=== PATIENT | female | born 1975 | race Caucasian/White ===

== ENCOUNTER 2016-03-14 11:11 | Outpatient (RCR) | payer OTHER ==
[~2016-03-14] VITALS: Ht 167.6 cm; Wt 89.0 kg
[2016-03-14] MEDS ORDERED: Glycopyrrolate 0.2mg/ml 1ml Vial ONE (11:12)
[2016-03-14] MEDS ORDERED: Succinylcholine 20mg/ml 10ml vial ONE (11:12)
[2016-03-14] MEDS ORDERED: Midazolam 2mg/2ml Inj ONE (11:12)
[2016-03-14] MEDS ORDERED: Methohexital Sodium Syr 100mg/10ml IVP ONE (11:12)
[2016-03-14] MEDS ORDERED: NS 550ML IV ONE (11:12)
[2016-03-26] MEDS ORDERED: NS 550ML IV ONE (12:00)
[2016-03-26] MEDS ORDERED: Methohexital Sodium Syr 100mg/10ml IVP ONE (12:00)
[2016-03-26] MEDS ORDERED: Midazolam 2mg/2ml Inj ONE (12:00)
[2016-03-26] MEDS ORDERED: Succinylcholine 20mg/ml 10ml vial ONE (12:00)
[2016-03-26] MEDS ORDERED: Glycopyrrolate 0.2mg/ml 1ml Vial ONE (12:00)
== END 2016-04-10 | disposition home or self-care (01) ==
LOC: ECT 11:11
DX: F31.63 Bipolar disorder, current episode mixed, severe, without psychotic features (principal); F41.0 Panic disorder [episodic paroxysmal anxiety]; F43.10 Post-traumatic stress disorder, unspecified; M54.5 Low back pain; R73.03 Prediabetes; M79.7 Fibromyalgia
CPT/HCPCS: 90870; J0330; J2250; J2405; J7040

== ENCOUNTER 2016-04-11 05:19 | Outpatient (RCR) | payer OTHER ==
[~2016-04-11] VITALS: Ht 167.6 cm; Wt 89.0 kg
[2016-04-11] MEDS ORDERED: NS 550ML IV ONE (05:20)
[2016-04-11] MEDS ORDERED: Midazolam 2mg/2ml Inj ONE (05:20)
[2016-04-11] MEDS ORDERED: Succinylcholine 20mg/ml 10ml vial ONE (05:20)
[2016-04-11] MEDS ORDERED: Glycopyrrolate 0.2mg/ml 1ml Vial ONE (05:20)
[2016-04-11] MEDS ORDERED: Methohexital Sodium Syr 100mg/10ml IVP ONE (05:20)
[2016-04-11] MEDS ORDERED: Atropine Sulfate 0.4mg/ml inj IVP PRN (09:23)
== END 2016-05-08 | disposition home or self-care (01) ==
LOC: ECT 05:19
DX: F31.63 Bipolar disorder, current episode mixed, severe, without psychotic features (principal)
CPT/HCPCS: 90870; J0330; J2250; J2405; J7040

== ENCOUNTER 2016-05-11 07:05 | Outpatient (RCR) | payer OTHER ==
[~2016-05-11] VITALS: Ht 167.6 cm; Wt 89.0 kg
[2016-05-28] MEDS ORDERED: Methohexital Sodium Syr 100mg/10ml IVP ONE (07:06)
[2016-05-28] MEDS ORDERED: NS 550ML IV ONE (07:06)
[2016-05-28] MEDS ORDERED: Midazolam 2mg/2ml Inj ONE (07:06)
[2016-05-28] MEDS ORDERED: Glycopyrrolate 0.2mg/ml 1ml Vial ONE (07:06)
[2016-05-28] MEDS ORDERED: Succinylcholine 20mg/ml 10ml vial ONE (07:06)
[2016-05-28] MEDS ORDERED: Atropine Sulfate 0.4mg/ml inj IVP PRN (10:58)
== END 2016-06-08 | disposition home or self-care (01) ==
LOC: ECT 07:05
DX: F31.63 Bipolar disorder, current episode mixed, severe, without psychotic features (principal)
CPT/HCPCS: 90870; J0330; J2250; J2405; J7040

== ENCOUNTER 2016-06-25 05:53 | Outpatient (RCR) | payer OTHER | END 2016-07-08 | disposition home or self-care (01) | LOC: ECT 05:53 | DX: F31.63 Bipolar disorder, current episode mixed, severe, without psychotic features (principal) ==

== ENCOUNTER 2017-05-03 07:47 | Outpatient (RCR) | payer OTHER ==
[~2017-05-03] VITALS: Ht 167.6 cm; Wt 89.0 kg
[2017-05-03] MEDS ORDERED: Succinylcholine 20mg/ml 10ml vial ONE (07:48)
[2017-05-03] MEDS ORDERED: NS 500ML ONE (07:48)
[2017-05-03] MEDS ORDERED: Midazolam 2mg/2ml Inj ONE (07:48)
[2017-05-03] MEDS ORDERED: Glycopyrrolate 0.2mg/ml 1ml Vial ONE (07:48)
[2017-05-03] MEDS ORDERED: Methohexital Sodium Syr 100mg/10ml IVP ONE (07:48)
[2017-05-03 08:26] VITALS: BP 110/76
[2017-05-03 08:40] VITALS: BP 136/67
[2017-05-03 08:45] VITALS: BP 127/81
[2017-05-03 08:50] VITALS: BP 113/68
[2017-05-03 08:55] VITALS: BP 131/57
[2017-05-06] MEDS ORDERED: Methohexital Sodium Syr 100mg/10ml IVP ONE (08:00)
[2017-05-06] MEDS ORDERED: Succinylcholine 20mg/ml 10ml vial ONE (08:00)
[2017-05-06] MEDS ORDERED: Glycopyrrolate 0.2mg/ml 1ml Vial ONE (08:00)
[2017-05-06] MEDS ORDERED: NS 500ML ONE (08:00)
[2017-05-06] MEDS ORDERED: Midazolam 2mg/2ml Inj ONE (08:00)
[2017-05-06 10:07] VITALS: BP 111/79
[2017-05-06] MEDS ORDERED: Atropine Sulfate 0.4mg/ml inj IVP PRN (10:28)
[2017-05-06] MEDS ORDERED: Sodium Chloride 500ML 500 ML IV ONE (10:28)
[2017-05-06 10:30] VITALS: BP 139/79
[2017-05-06 10:35] VITALS: BP 114/61
[2017-05-06 10:40] VITALS: BP 114/61
[2017-05-06 10:45] VITALS: BP 110/52
[2017-05-08 07:11] VITALS: BP 112/80
[2017-05-08] MEDS ORDERED: Sodium Chloride 500ML 500 ML IV ONE (07:24)
[2017-05-08 07:25] VITALS: BP 131/74
[2017-05-08 07:30] VITALS: BP 126/68
[2017-05-08 07:35] VITALS: BP 91/60
[2017-05-08 07:40] VITALS: BP 106/40
[2017-05-08 07:45] VITALS: BP 108/69
[2017-05-08] MEDS ORDERED: Midazolam 2mg/2ml Inj ONE (08:00)
[2017-05-08] MEDS ORDERED: Succinylcholine 20mg/ml 10ml vial ONE (08:00)
[2017-05-08] MEDS ORDERED: Methohexital Sodium Syr 100mg/10ml IVP ONE (08:00)
[2017-05-08] MEDS ORDERED: NS 500ML ONE (08:00)
[2017-05-08] MEDS ORDERED: Glycopyrrolate 0.2mg/ml 1ml Vial ONE (08:00)
== END 2017-05-08 | disposition home or self-care (01) ==
LOC: ECT 07:47
DX: F31.63 Bipolar disorder, current episode mixed, severe, without psychotic features (principal)
CPT/HCPCS: 90870; J0330; J2250; J2405; J7040

== ENCOUNTER 2017-05-10 05:08 | Outpatient (RCR) | payer OTHER ==
[~2017-05-10] VITALS: Ht 167.6 cm; Wt 89.0 kg
[2017-05-10] MEDS ORDERED: Methohexital Sodium Syr 100mg/10ml IVP ONE (05:09)
[2017-05-10] MEDS ORDERED: Succinylcholine 20mg/ml 10ml vial ONE (05:09)
[2017-05-10] MEDS ORDERED: Midazolam 2mg/2ml Inj ONE (05:09)
[2017-05-10] MEDS ORDERED: NS 500ML ONE (05:09)
[2017-05-10] MEDS ORDERED: Glycopyrrolate 0.2mg/ml 1ml Vial ONE (05:09)
[2017-05-10 08:06] VITALS: BP 113/76
[2017-05-10] MEDS ORDERED: Atropine Sulfate 0.4mg/ml inj IVP PRN (08:28)
[2017-05-10] MEDS ORDERED: Sodium Chloride 500ML 500 ML IV ONE (08:28)
[2017-05-10 08:30] VITALS: BP 109/32
[2017-05-10 08:35] VITALS: BP 123/42
[2017-05-10 08:40] VITALS: BP 102/63
[2017-05-10 08:45] VITALS: BP 106/66
[2017-05-10 08:50] VITALS: BP 108/64
[2017-05-13] MEDS ORDERED: Succinylcholine 20mg/ml 10ml vial ONE (07:00)
[2017-05-13] MEDS ORDERED: NS 500ML ONE (07:00)
[2017-05-13] MEDS ORDERED: Midazolam 2mg/2ml Inj ONE (07:00)
[2017-05-13] MEDS ORDERED: Glycopyrrolate 0.2mg/ml 1ml Vial ONE (07:00)
[2017-05-13] MEDS ORDERED: Methohexital Sodium Syr 100mg/10ml IVP ONE (07:00)
[2017-05-13 08:31] VITALS: BP 120/80
[2017-05-13 08:43] VITALS: BP 135/87
[2017-05-13] MEDS ORDERED: Sodium Chloride 500ML 500 ML IV ONE (08:43)
[2017-05-13 08:48] VITALS: BP 130/76
[2017-05-13 08:53] VITALS: BP 127/93
[2017-05-13 08:58] VITALS: BP 119/77
[2017-05-17] MEDS ORDERED: Midazolam 2mg/2ml Inj ONE (07:00)
[2017-05-17] MEDS ORDERED: Methohexital Sodium Syr 100mg/10ml IVP ONE (07:00)
[2017-05-17] MEDS ORDERED: Glycopyrrolate 0.2mg/ml 1ml Vial ONE (07:00)
[2017-05-17] MEDS ORDERED: Succinylcholine 20mg/ml 10ml vial ONE (07:00)
[2017-05-17] MEDS ORDERED: NS 500ML ONE (07:00)
[2017-05-17 08:10] VITALS: BP 131/69
[2017-05-17] MEDS ORDERED: Sodium Chloride 500ML 500 ML IV ONE (08:10)
[2017-05-17 08:15] VITALS: BP 121/73
[2017-05-17 08:20] VITALS: BP 125/69
[2017-05-17 08:25] VITALS: BP 121/74
[2017-05-20] MEDS ORDERED: NS 500ML ONE (08:00)
[2017-05-20] MEDS ORDERED: Succinylcholine 20mg/ml 10ml vial ONE (08:00)
[2017-05-20] MEDS ORDERED: Midazolam 2mg/2ml Inj ONE (08:00)
[2017-05-20] MEDS ORDERED: Glycopyrrolate 0.2mg/ml 1ml Vial ONE (08:00)
[2017-05-20] MEDS ORDERED: Methohexital Sodium Syr 100mg/10ml IVP ONE (08:00)
[2017-05-20 09:22] VITALS: BP 125/83
[2017-05-20] MEDS ORDERED: Sodium Chloride 500ML 500 ML IV ONE (09:53)
[2017-05-20] MEDS ORDERED: Atropine Sulfate 0.4mg/ml inj IVP PRN (09:53)
[2017-05-20 09:55] VITALS: BP 126/73
[2017-05-20 10:00] VITALS: BP 129/63
[2017-05-20 10:05] VITALS: BP 123/68
[2017-05-20 10:10] VITALS: BP 106/56
[2017-05-22] MEDS ORDERED: Midazolam 2mg/2ml Inj ONE (08:00)
[2017-05-22] MEDS ORDERED: Glycopyrrolate 0.2mg/ml 1ml Vial ONE (08:00)
[2017-05-22] MEDS ORDERED: Methohexital Sodium Syr 100mg/10ml IVP ONE (08:00)
[2017-05-22] MEDS ORDERED: Succinylcholine 20mg/ml 10ml vial ONE (08:00)
[2017-05-22] MEDS ORDERED: NS 500ML ONE (08:00)
[2017-05-22] MEDS ORDERED: Sodium Chloride 500ML 500 ML IV ONE (10:01)
[2017-05-24] MEDS ORDERED: Midazolam 2mg/2ml Inj ONE (07:00)
[2017-05-24] MEDS ORDERED: Succinylcholine 20mg/ml 10ml vial ONE (07:00)
[2017-05-24] MEDS ORDERED: Glycopyrrolate 0.2mg/ml 1ml Vial ONE (07:00)
[2017-05-24] MEDS ORDERED: NS 500ML ONE (07:00)
[2017-05-24] MEDS ORDERED: Methohexital Sodium Syr 100mg/10ml IVP ONE (07:00)
[2017-05-24 08:15] VITALS: BP 135/95
[2017-05-24 08:35] VITALS: BP 121/86
[2017-05-24 08:40] VITALS: BP 136/92
[2017-05-24 08:45] VITALS: BP 144/89
[2017-05-24 08:50] VITALS: BP 149/110
[2017-05-27] MEDS ORDERED: Glycopyrrolate 0.2mg/ml 1ml Vial ONE (06:00)
[2017-05-27] MEDS ORDERED: Succinylcholine 20mg/ml 10ml vial ONE (06:00)
[2017-05-27] MEDS ORDERED: Midazolam 2mg/2ml Inj ONE (06:00)
[2017-05-27] MEDS ORDERED: Methohexital Sodium Syr 100mg/10ml IVP ONE (06:00)
[2017-05-27] MEDS ORDERED: NS 500ML ONE (06:00)
[2017-05-27 08:06] VITALS: BP 124/90
[2017-05-27] MEDS ORDERED: Sodium Chloride 500ML 500 ML IV ONE (08:19)
[2017-05-27 08:20] VITALS: BP 118/64
[2017-05-27 08:25] VITALS: BP 119/67
[2017-05-27 08:30] VITALS: BP 117/58
[2017-05-27 08:35] VITALS: BP 109/68
[2017-05-31 08:00] VITALS: BP 140/89
[2017-05-31] MEDS ORDERED: Succinylcholine 20mg/ml 10ml vial ONE (08:00)
[2017-05-31] MEDS ORDERED: Midazolam 2mg/2ml Inj ONE (08:00)
[2017-05-31] MEDS ORDERED: Methohexital Sodium Syr 100mg/10ml IVP ONE (08:00)
[2017-05-31] MEDS ORDERED: NS 500ML ONE (08:00)
[2017-05-31] MEDS ORDERED: Glycopyrrolate 0.2mg/ml 1ml Vial ONE (08:00)
[2017-05-31] MEDS ORDERED: Sodium Chloride 500ML 500 ML IV ONE (08:16)
[2017-05-31 08:20] VITALS: BP 131/52
[2017-05-31 08:25] VITALS: BP 134/73
[2017-05-31 08:30] VITALS: BP 126/72
[2017-05-31 08:35] VITALS: BP 128/67
== END 2017-06-08 | disposition home or self-care (01) ==
LOC: ECT 05:08
DX: F31.63 Bipolar disorder, current episode mixed, severe, without psychotic features (principal)
CPT/HCPCS: 90870; J0330; J2250; J2405; J7040

== ENCOUNTER 2017-07-22 08:31 | Outpatient (RCR) | payer OTHER ==
[~2017-07-22] VITALS: Ht 167.6 cm; Wt 89.0 kg
[2017-07-22 07:29] VITALS: BP 123/88
[2017-07-22 07:55] VITALS: BP 126/72
[2017-07-22 08:00] VITALS: BP 133/63
[2017-07-22 08:05] VITALS: BP 144/37
[2017-07-22 08:10] VITALS: BP 135/66
[2017-07-22 08:15] VITALS: BP 138/69
[~2017-07-22 08:31] MED LIST: Atropine Sulfate 0.4mg/ml inj IVP PRN; Sodium Chloride 500ML 500 ML IV ONE
[2017-07-22] MEDS ORDERED: NS 500ML ONE (08:32)
[2017-07-22] MEDS ORDERED: Succinylcholine 20mg/ml 10ml vial ONE (08:32)
[2017-07-22] MEDS ORDERED: Midazolam 2mg/2ml Inj ONE (08:32)
[2017-07-22] MEDS ORDERED: Glycopyrrolate 0.2mg/ml 1ml Vial ONE (08:32)
[2017-07-22] MEDS ORDERED: Methohexital Sodium Syr 100mg/10ml IVP ONE (08:32)
[2017-08-07] MEDS ORDERED: Glycopyrrolate 0.2mg/ml 1ml Vial ONE (07:00)
[2017-08-07] MEDS ORDERED: NS 500ML ONE (07:00)
[2017-08-07] MEDS ORDERED: Midazolam 2mg/2ml Inj ONE (07:00)
[2017-08-07] MEDS ORDERED: Succinylcholine 20mg/ml 10ml vial ONE (07:00)
[2017-08-07] MEDS ORDERED: Methohexital Sodium Syr 100mg/10ml IVP ONE (07:00)
[2017-08-07 08:18] VITALS: BP 135/95
[2017-08-07] MEDS ORDERED: Sodium Chloride 500ML 500 ML IV ONE (08:38)
[2017-08-07 08:40] VITALS: BP 131/72
[2017-08-07 08:45] VITALS: BP 131/78
[2017-08-07 08:50] VITALS: BP 134/80
[2017-08-07 08:55] VITALS: BP 138/79
== END 2017-08-08 | disposition home or self-care (01) ==
LOC: ECT 08:31
DX: F31.63 Bipolar disorder, current episode mixed, severe, without psychotic features (principal)
CPT/HCPCS: 90870; J0330; J2250; J2405; J7040

== ENCOUNTER 2017-08-26 04:49 | Outpatient (RCR) | payer OTHER ==
[~2017-08-26] VITALS: Ht 33 cm; Wt 0.5 kg
[2017-08-26] MEDS ORDERED: Succinylcholine 20mg/ml 10ml vial ONE (04:50)
[2017-08-26] MEDS ORDERED: Midazolam 2mg/2ml Inj ONE (04:50)
[2017-08-26] MEDS ORDERED: Glycopyrrolate 0.2mg/ml 1ml Vial ONE (04:50)
[2017-08-26] MEDS ORDERED: Methohexital Sodium Syr 100mg/10ml IVP ONE (04:50)
[2017-08-26] MEDS ORDERED: NS 500ML ONE (04:50)
[2017-08-26 07:51] VITALS: BP 124/88
[2017-08-26] MEDS ORDERED: Sodium Chloride 500ML 500 ML IV ONE (08:09)
[2017-08-26 08:10] VITALS: BP 134/76
[2017-08-26 08:15] VITALS: BP 134/84
[2017-08-26 08:20] VITALS: BP 136/64
[2017-08-26 08:25] VITALS: BP 129/88
[2017-09-06 07:27] VITALS: BP 136/94
[2017-09-06] MEDS ORDERED: Sodium Chloride 500ML 500 ML IV ONE (07:42)
[2017-09-06 07:45] VITALS: BP 153/83
[2017-09-06 07:50] VITALS: BP 137/79
[2017-09-06 07:55] VITALS: BP 128/77
[2017-09-06 08:00] VITALS: BP 121/77
[2017-09-07] MEDS ORDERED: Methohexital Sodium 500mg Vial IVP ONE (10:42)
[2017-09-07] MEDS ORDERED: NS 500ML ONE (10:42)
[2017-09-07] MEDS ORDERED: Glycopyrrolate 0.2mg/ml 1ml Vial ONE (10:42)
[2017-09-07] MEDS ORDERED: Midazolam 2mg/2ml Inj ONE (10:42)
[2017-09-07] MEDS ORDERED: Succinylcholine 20mg/ml 10ml vial ONE (10:42)
== END 2017-09-07 | disposition home or self-care (01) ==
LOC: ECT 04:49
DX: F31.63 Bipolar disorder, current episode mixed, severe, without psychotic features (principal)
CPT/HCPCS: 90870; J0330; J2250; J2405; J3490; J7040

== ENCOUNTER 2017-09-16 05:36 | Outpatient (RCR) | payer OTHER ==
[~2017-09-16] VITALS: Ht 167.6 cm; Wt 89.0 kg
[2017-09-16] MEDS ORDERED: Glycopyrrolate 0.2mg/ml 1ml Vial ONE (05:37)
[2017-09-16] MEDS ORDERED: Succinylcholine 20mg/ml 10ml vial ONE (05:37)
[2017-09-16] MEDS ORDERED: Midazolam 2mg/2ml Inj ONE (05:37)
[2017-09-16] MEDS ORDERED: NS 500ML ONE (05:37)
[2017-09-16] MEDS ORDERED: Methohexital Sodium Syr 100mg/10ml IVP ONE (05:37)
[2017-09-16] MEDS ORDERED: Sodium Chloride 500ML 500 ML IV ONE (08:19)
[2017-09-16 08:20] VITALS: BP 128/72
[2017-09-16 08:25] VITALS: BP 128/74
[2017-09-16 08:30] VITALS: BP 128/74
[2017-09-16 08:35] VITALS: BP 119/55
[2017-09-16 08:40] VITALS: BP 106/57
[2017-09-16 08:45] VITALS: BP 106/57
== END 2017-10-08 | disposition home or self-care (01) ==
LOC: ECT 05:36
DX: F31.63 Bipolar disorder, current episode mixed, severe, without psychotic features (principal)
CPT/HCPCS: 90870; J0330; J2250; J2405; J7040

== ENCOUNTER 2017-10-09 08:29 | Outpatient (RCR) | payer OTHER ==
[~2017-10-09] VITALS: Ht 167.6 cm; Wt 89.0 kg
[2017-10-09] MEDS ORDERED: Midazolam 2mg/2ml Inj ONE (08:30)
[2017-10-09] MEDS ORDERED: Glycopyrrolate 0.2mg/ml 1ml Vial ONE (08:30)
[2017-10-09] MEDS ORDERED: NS 500ML ONE (08:30)
[2017-10-09] MEDS ORDERED: Succinylcholine 20mg/ml 10ml vial ONE (08:30)
[2017-10-09] MEDS ORDERED: Methohexital Sodium Syr 100mg/10ml IVP ONE (08:30)
[2017-10-09 09:13] VITALS: BP 118/81
[2017-10-09 09:30] VITALS: BP 122/68
[2017-10-09] MEDS ORDERED: Sodium Chloride 500ML 500 ML IV ONE (09:30)
[2017-10-09 09:35] VITALS: BP 127/57
[2017-10-09 09:40] VITALS: BP 123/81
[2017-10-09 09:45] VITALS: BP 121/77
[2017-10-21] MEDS ORDERED: Methohexital Sodium Syr 100mg/10ml IVP ONE (08:00)
[2017-10-21] MEDS ORDERED: Succinylcholine 20mg/ml 10ml vial ONE (08:00)
[2017-10-21] MEDS ORDERED: NS 500ML ONE (08:00)
[2017-10-21] MEDS ORDERED: Midazolam 2mg/2ml Inj ONE (08:00)
[2017-10-21] MEDS ORDERED: Glycopyrrolate 0.2mg/ml 1ml Vial ONE (08:00)
[2017-10-21 08:45] VITALS: BP 122/83
[2017-10-21] MEDS ORDERED: Sodium Chloride 500ML 500 ML IV ONE (09:00)
[2017-10-21 09:05] VITALS: BP 128/74
[2017-10-21 09:10] VITALS: BP 139/74
[2017-10-21 09:15] VITALS: BP 141/77
[2017-10-21 09:20] VITALS: BP 127/88
[2017-10-30] MEDS ORDERED: NS 500ML ONE (08:00)
[2017-10-30] MEDS ORDERED: Glycopyrrolate 0.2mg/ml 1ml Vial ONE (08:00)
[2017-10-30] MEDS ORDERED: Midazolam 2mg/2ml Inj ONE (08:00)
[2017-10-30] MEDS ORDERED: Methohexital Sodium Syr 100mg/10ml IVP ONE (08:00)
[2017-10-30] MEDS ORDERED: Succinylcholine 20mg/ml 10ml vial ONE (08:00)
[2017-10-30 08:13] VITALS: BP 136/89
[2017-10-30] MEDS ORDERED: Sodium Chloride 500ML 500 ML IV ONE (08:23)
[2017-10-30 08:25] VITALS: BP 116/73
[2017-10-30 08:30] VITALS: BP 116/73
[2017-10-30 08:35] VITALS: BP 130/82
[2017-10-30 08:40] VITALS: BP 126/77
== END 2017-11-08 | disposition home or self-care (01) ==
LOC: ECT 08:29
DX: F31.63 Bipolar disorder, current episode mixed, severe, without psychotic features (principal)
CPT/HCPCS: 90870; J0330; J2250; J2405; J7040

== ENCOUNTER 2017-11-13 06:30 | Outpatient (RCR) | payer OTHER ==
[~2017-11-13] VITALS: Ht 167.6 cm; Wt 89.0 kg
[2017-11-13] MEDS ORDERED: Methohexital Sodium Syr 100mg/10ml IVP ONE (06:31)
[2017-11-13] MEDS ORDERED: Succinylcholine 20mg/ml 10ml vial ONE (06:31)
[2017-11-13] MEDS ORDERED: Glycopyrrolate 0.2mg/ml 1ml Vial ONE (06:31)
[2017-11-13] MEDS ORDERED: NS 500ML ONE (06:31)
[2017-11-13] MEDS ORDERED: Midazolam 2mg/2ml Inj ONE (06:31)
[2017-11-13 08:30] VITALS: BP 126/86
[2017-11-13] MEDS ORDERED: Sodium Chloride 500ML 500 ML IV ONE (08:46)
[2017-11-13 08:50] VITALS: BP 133/71
[2017-11-13 08:55] VITALS: BP 123/71
[2017-11-13 09:00] VITALS: BP 123/61
[2017-11-13 09:05] VITALS: BP 125/69
[2017-11-18] MEDS ORDERED: Methohexital Sodium Syr 100mg/10ml IVP ONE (08:00)
[2017-11-18] MEDS ORDERED: NS 500ML ONE (08:00)
[2017-11-18] MEDS ORDERED: Succinylcholine 20mg/ml 10ml vial ONE (08:00)
[2017-11-18] MEDS ORDERED: Glycopyrrolate 0.2mg/ml 1ml Vial ONE (08:00)
[2017-11-18] MEDS ORDERED: Midazolam 2mg/2ml Inj ONE (08:00)
[2017-11-18 08:18] VITALS: BP 113/78
[2017-11-18] MEDS ORDERED: Sodium Chloride 500ML 500 ML IV ONE (08:32)
[2017-11-18 08:35] VITALS: BP 109/71
[2017-11-18 08:40] VITALS: BP 115/57
[2017-11-18 08:45] VITALS: BP 111/70
[2017-11-18 08:50] VITALS: BP 113/69
[2017-12-02] MEDS ORDERED: NS 500ML ONE (07:00)
[2017-12-02] MEDS ORDERED: Glycopyrrolate 0.2mg/ml 1ml Vial ONE (07:00)
[2017-12-02] MEDS ORDERED: Methohexital Sodium Syr 100mg/10ml IVP ONE (07:00)
[2017-12-02] MEDS ORDERED: Midazolam 2mg/2ml Inj ONE (07:00)
[2017-12-02] MEDS ORDERED: Succinylcholine 20mg/ml 10ml vial ONE (07:00)
[2017-12-02] MEDS ORDERED: Sodium Chloride 500ML 500 ML IV ONE (08:00)
[2017-12-02 08:04] VITALS: BP 124/78
[2017-12-02 08:20] VITALS: BP 144/74
[2017-12-02 08:25] VITALS: BP 129/80
[2017-12-02 08:30] VITALS: BP 133/76
[2017-12-02 08:35] VITALS: BP 129/87
== END 2017-12-08 | disposition home or self-care (01) ==
LOC: ECT 06:30
DX: F31.63 Bipolar disorder, current episode mixed, severe, without psychotic features (principal)
CPT/HCPCS: 90870; J0330; J2250; J2405; J7040

== ENCOUNTER 2017-12-13 05:40 | Outpatient (RCR) | payer OTHER ==
[~2017-12-13] VITALS: Ht 30.5 cm; Wt 0.5 kg
[2017-12-13] MEDS ORDERED: Methohexital Sodium Syr 100mg/10ml IVP ONE (05:41)
[2017-12-13] MEDS ORDERED: NS 500ML ONE ×2 (05:41)
[2017-12-13] MEDS ORDERED: Glycopyrrolate 0.2mg/ml 1ml Vial ONE ×2 (05:41)
[2017-12-13] MEDS ORDERED: Midazolam 2mg/2ml Inj ONE ×2 (05:41)
[2017-12-13] MEDS ORDERED: Succinylcholine 20mg/ml 10ml vial ONE ×2 (05:41)
[2017-12-13] MEDS ORDERED: Methohexital Sodium 500mg Vial IVP ONE (05:41)
[2017-12-13 07:55] VITALS: BP 146/102
[2017-12-13] MEDS ORDERED: Sodium Chloride 500ML 500 ML IV ONE (08:10)
[2017-12-13 08:15] VITALS: BP 135/52
[2017-12-13 08:20] VITALS: BP 140/91
[2017-12-13 08:25] VITALS: BP 132/78
[2017-12-13 08:30] VITALS: BP 140/69
[2018-01-03 07:57] VITALS: BP 110/82
[2018-01-03] MEDS ORDERED: Sodium Chloride 500ML 500 ML IV ONE (08:10)
[2018-01-03 08:15] VITALS: BP 139/67
[2018-01-03 08:20] VITALS: BP 138/74
[2018-01-03 08:25] VITALS: BP 140/68
[2018-01-03 08:30] VITALS: BP 140/68
== END 2018-01-08 | disposition home or self-care (01) ==
LOC: ECT 05:40
DX: F31.63 Bipolar disorder, current episode mixed, severe, without psychotic features (principal)
CPT/HCPCS: 90870; J0330; J2250; J2405; J3490; J7040

== ENCOUNTER 2018-01-17 05:01 | Outpatient (RCR) | payer OTHER ==
[~2018-01-17] VITALS: Ht 167.6 cm; Wt 89.0 kg
[2018-01-17] MEDS ORDERED: Succinylcholine 20mg/ml 10ml vial ONE (05:02)
[2018-01-17] MEDS ORDERED: NS 500ML ONE (05:02)
[2018-01-17] MEDS ORDERED: Glycopyrrolate 0.2mg/ml 1ml Vial ONE (05:02)
[2018-01-17] MEDS ORDERED: Methohexital Sodium Syr 100mg/10ml IVP ONE (05:02)
[2018-01-17] MEDS ORDERED: Midazolam 2mg/2ml Inj ONE (05:02)
[2018-01-17 07:53] VITALS: BP 123/84
[2018-01-17] MEDS ORDERED: Sodium Chloride 500ML 500 ML IV ONE (08:09)
[2018-01-17 08:10] VITALS: BP 128/55
[2018-01-17 08:15] VITALS: BP 124/53
[2018-01-17 08:20] VITALS: BP 125/70
[2018-01-17 08:25] VITALS: BP 128/75
[2018-01-17 08:26] VITALS: BP 131/51
== END 2018-02-07 | disposition home or self-care (01) ==
LOC: ECT 05:01
DX: F31.63 Bipolar disorder, current episode mixed, severe, without psychotic features (principal)
CPT/HCPCS: 90870; J0330; J2250; J2405; J7040

== ENCOUNTER 2018-02-12 09:22 | Outpatient (RCR) | payer OTHER ==
[~2018-02-12] VITALS: Ht 167.6 cm; Wt 89.0 kg
[2018-02-12] MEDS ORDERED: Methohexital Sodium Syr 100mg/10ml IVP ONE (09:23)
[2018-02-12] MEDS ORDERED: Midazolam 2mg/2ml Inj ONE (09:23)
[2018-02-12] MEDS ORDERED: Glycopyrrolate 0.2mg/ml 1ml Vial ONE (09:23)
[2018-02-12] MEDS ORDERED: Succinylcholine 20mg/ml 10ml vial ONE (09:23)
[2018-02-12 09:49] VITALS: BP 125/87
[2018-02-12 10:05] VITALS: BP 132/66
[2018-02-12 10:10] VITALS: BP 129/66
[2018-02-12 10:15] VITALS: BP 130/78
[2018-02-12 10:20] VITALS: BP 117/75
[2018-02-12] MEDS ORDERED: Sodium Chloride 500ML 500 ML IV ONE (14:30)
[2018-02-24 07:32] VITALS: BP 126/83
[2018-02-24] MEDS ORDERED: Succinylcholine 20mg/ml 10ml vial ONE (08:00)
[2018-02-24] MEDS ORDERED: NS 500ML ONE (08:00)
[2018-02-24] MEDS ORDERED: Methohexital Sodium Syr 100mg/10ml IVP ONE (08:00)
[2018-02-24] MEDS ORDERED: Glycopyrrolate 0.2mg/ml 1ml Vial ONE (08:00)
[2018-02-24] MEDS ORDERED: Midazolam 2mg/2ml Inj ONE (08:00)
[2018-02-24] MEDS ORDERED: Sodium Chloride 500ML 500 ML IV ONE (08:12)
[2018-02-24 08:15] VITALS: BP 141/76
[2018-02-24 08:20] VITALS: BP 136/61
[2018-02-24 08:25] VITALS: BP 138/71
[2018-02-24 08:30] VITALS: BP 141/66
== END 2018-03-10 | disposition home or self-care (01) ==
LOC: ECT 09:22
DX: F31.63 Bipolar disorder, current episode mixed, severe, without psychotic features (principal)
CPT/HCPCS: 90870; J0330; J2250; J2405; J7040

== ENCOUNTER 2018-03-14 06:29 | Outpatient (RCR) | payer OTHER ==
[~2018-03-14] VITALS: Ht 167.6 cm; Wt 89.0 kg
[2018-03-14] MEDS ORDERED: Methohexital Sodium Syr 100mg/10ml IVP ONE (06:30)
[2018-03-14] MEDS ORDERED: Midazolam 2mg/2ml Inj ONE (06:30)
[2018-03-14] MEDS ORDERED: Glycopyrrolate 0.2mg/ml 1ml Vial ONE (06:30)
[2018-03-14] MEDS ORDERED: NS 500ML ONE (06:30)
[2018-03-14] MEDS ORDERED: Succinylcholine 20mg/ml 10ml vial ONE (06:30)
[2018-03-14 08:03] VITALS: BP 129/88
[2018-03-14 08:15] VITALS: BP 137/76
[2018-03-14 08:20] VITALS: BP 130/73
[2018-03-14 08:25] VITALS: BP 130/76
[2018-03-14 08:30] VITALS: BP 130/78
[2018-04-04 07:55] VITALS: BP 135/90
[2018-04-04] MEDS ORDERED: Glycopyrrolate 0.2mg/ml 1ml Vial ONE (08:00)
[2018-04-04] MEDS ORDERED: Methohexital Sodium Syr 100mg/10ml IVP ONE (08:00)
[2018-04-04] MEDS ORDERED: Midazolam 2mg/2ml Inj ONE (08:00)
[2018-04-04] MEDS ORDERED: Succinylcholine 20mg/ml 10ml vial ONE (08:00)
[2018-04-04] MEDS ORDERED: NS 500ML ONE (08:00)
[2018-04-04 08:10] VITALS: BP 133/79
[2018-04-04 08:15] VITALS: BP 117/79
[2018-04-04 08:20] VITALS: BP 123/79
[2018-04-04 08:25] VITALS: BP 129/46
== END 2018-04-10 | disposition home or self-care (01) ==
LOC: ECT 06:29
DX: F31.63 Bipolar disorder, current episode mixed, severe, without psychotic features (principal); F41.0 Panic disorder [episodic paroxysmal anxiety]; F43.10 Post-traumatic stress disorder, unspecified; E03.9 Hypothyroidism, unspecified; Z90.710 Acquired absence of both cervix and uterus; M79.7 Fibromyalgia; M54.5 Low back pain; R73.03 Prediabetes
CPT/HCPCS: 90870; J0330; J2250; J2405; J7040

== ENCOUNTER 2018-04-14 08:34 | Outpatient (RCR) | payer OTHER ==
[~2018-04-14] VITALS: Ht 30.5 cm; Wt 0.5 kg
[2018-04-14 07:59] VITALS: BP 120/93
[2018-04-14 08:15] VITALS: BP 136/77
[2018-04-14 08:20] VITALS: BP 134/72
[2018-04-14 08:25] VITALS: BP 137/76
[2018-04-14 08:30] VITALS: BP 118/72
[2018-04-14] MEDS ORDERED: Succinylcholine 20mg/ml 10ml vial ONE (08:35)
[2018-04-14] MEDS ORDERED: NS 500ML ONE (08:35)
[2018-04-14] MEDS ORDERED: Glycopyrrolate 0.2mg/ml 1ml Vial ONE (08:35)
[2018-04-14] MEDS ORDERED: Methohexital Sodium Syr 100mg/10ml IVP ONE (08:35)
[2018-04-14] MEDS ORDERED: Midazolam 2mg/2ml Inj ONE (08:35)
[2018-04-25] MEDS ORDERED: Methohexital Sodium Syr 100mg/10ml IVP ONE (06:00)
[2018-04-25] MEDS ORDERED: NS 500ML ONE (06:00)
[2018-04-25] MEDS ORDERED: Glycopyrrolate 0.2mg/ml 1ml Vial ONE (06:00)
[2018-04-25] MEDS ORDERED: Succinylcholine 20mg/ml 10ml vial ONE (06:00)
[2018-04-25 07:47] VITALS: BP 135/96
[2018-04-25 08:05] VITALS: BP 148/84
[2018-04-25 08:10] VITALS: BP 122/57
[2018-04-25 08:15] VITALS: BP 129/77
[2018-04-25 08:20] VITALS: BP 135/77
== END 2018-05-08 | disposition home or self-care (01) ==
LOC: ECT 08:34
DX: F31.63 Bipolar disorder, current episode mixed, severe, without psychotic features (principal)
CPT/HCPCS: 90870; J0330; J2250; J2405; J3360; J7040

== ENCOUNTER 2018-05-12 11:52 | Outpatient (RCR) | payer OTHER ==
[~2018-05-12] VITALS: Ht 30.5 cm; Wt 0.5 kg
[2018-05-12 08:45] VITALS: BP 138/90
[2018-05-12 09:00] VITALS: BP 143/74
[2018-05-12 09:05] VITALS: BP 134/89
[2018-05-12 09:10] VITALS: BP 137/71
[2018-05-12 09:15] VITALS: BP 132/92
[2018-05-12] MEDS ORDERED: Midazolam 2mg/2ml Inj ONE (11:53)
[2018-05-12] MEDS ORDERED: NS 500ML ONE (11:53)
[2018-05-12] MEDS ORDERED: Glycopyrrolate 0.2mg/ml 1ml Vial ONE (11:53)
[2018-05-12] MEDS ORDERED: Methohexital Sodium Syr 100mg/10ml IVP ONE (11:53)
[2018-05-12] MEDS ORDERED: Succinylcholine 20mg/ml 10ml vial ONE (11:53)
== END 2018-06-08 | disposition home or self-care (01) ==
LOC: ECT 11:52
DX: F31.63 Bipolar disorder, current episode mixed, severe, without psychotic features (principal)
CPT/HCPCS: 90870; J0330; J2250; J2405; J7040

== ENCOUNTER 2018-06-09 06:12 | Outpatient (RCR) | payer OTHER ==
[~2018-06-09] VITALS: Ht 167.6 cm; Wt 89.0 kg
[2018-06-09] MEDS ORDERED: Midazolam 2mg/2ml Inj ONE (06:13)
[2018-06-09] MEDS ORDERED: Glycopyrrolate 0.2mg/ml 1ml Vial ONE (06:13)
[2018-06-09] MEDS ORDERED: Methohexital Sodium Syr 100mg/10ml IVP ONE (06:13)
[2018-06-09] MEDS ORDERED: NS 500ML ONE (06:13)
[2018-06-09] MEDS ORDERED: Succinylcholine 20mg/ml 10ml vial ONE (06:13)
[2018-06-09 08:24] VITALS: BP 131/95
[2018-06-09 08:40] VITALS: BP 120/78
[2018-06-09 08:45] VITALS: BP 121/75
[2018-06-09 08:50] VITALS: BP 122/68
[2018-06-09 08:55] VITALS: BP 122/66
[2018-06-30] MEDS ORDERED: Midazolam 2mg/2ml Inj ONE (07:00)
[2018-06-30] MEDS ORDERED: Succinylcholine 20mg/ml 10ml vial ONE (07:00)
[2018-06-30] MEDS ORDERED: Methohexital Sodium Syr 100mg/10ml IVP ONE (07:00)
[2018-06-30] MEDS ORDERED: NS 500ML ONE (07:00)
[2018-06-30] MEDS ORDERED: Glycopyrrolate 0.2mg/ml 1ml Vial ONE (07:00)
[2018-06-30 08:25] VITALS: BP 131/93
[2018-06-30 08:35] VITALS: BP 140/80
[2018-06-30 08:40] VITALS: BP 146/85
[2018-06-30 08:45] VITALS: BP 136/83
[2018-06-30 08:50] VITALS: BP 135/71
== END 2018-07-08 | disposition home or self-care (01) ==
LOC: ECT 06:12
DX: F31.63 Bipolar disorder, current episode mixed, severe, without psychotic features (principal)
CPT/HCPCS: 90870; J0330; J2250; J2405; J7040

== ENCOUNTER 2018-07-14 08:28 | Outpatient (RCR) | payer OTHER ==
[~2018-07-14] VITALS: Ht 30.5 cm; Wt 0.5 kg
[2018-07-14] MEDS ORDERED: NS 500ML ONE (08:29)
[2018-07-14] MEDS ORDERED: Succinylcholine 20mg/ml 10ml vial ONE (08:29)
[2018-07-14] MEDS ORDERED: Methohexital Sodium Syr 100mg/10ml IVP ONE (08:29)
[2018-07-14] MEDS ORDERED: Midazolam 2mg/2ml Inj ONE (08:29)
[2018-07-14] MEDS ORDERED: Glycopyrrolate 0.2mg/ml 1ml Vial ONE (08:29)
[2018-07-14 09:23] VITALS: BP 118/88
[2018-07-14 09:45] VITALS: BP 120/80
[2018-07-14 09:50] VITALS: BP 124/72
[2018-07-14 09:55] VITALS: BP 139/80
[2018-07-14 10:00] VITALS: BP 123/70
[2018-07-30 07:58] VITALS: BP 122/85
[2018-07-30] MEDS ORDERED: Succinylcholine 20mg/ml 10ml vial ONE (08:00)
[2018-07-30] MEDS ORDERED: NS 500ML ONE (08:00)
[2018-07-30] MEDS ORDERED: Midazolam 2mg/2ml Inj ONE (08:00)
[2018-07-30] MEDS ORDERED: Methohexital Sodium Syr 100mg/10ml IVP ONE (08:00)
[2018-07-30] MEDS ORDERED: Glycopyrrolate 0.2mg/ml 1ml Vial ONE (08:00)
[2018-07-30 08:12] VITALS: BP 134/81
[2018-07-30 08:17] VITALS: BP 131/69
[2018-07-30 08:22] VITALS: BP 139/79
[2018-07-30 08:27] VITALS: BP 127/86
== END 2018-08-08 | disposition home or self-care (01) ==
LOC: ECT 08:28
DX: F31.63 Bipolar disorder, current episode mixed, severe, without psychotic features (principal)
CPT/HCPCS: 90870; J0330; J2250; J2405; J7040

== ENCOUNTER 2018-08-15 04:45 | Outpatient (RCR) | payer OTHER ==
[~2018-08-15] VITALS: Ht 30.5 cm; Wt 0.5 kg
[2018-08-15] MEDS ORDERED: Glycopyrrolate 0.2mg/ml 1ml Vial ONE (04:46)
[2018-08-15] MEDS ORDERED: Midazolam 2mg/2ml Inj ONE (04:46)
[2018-08-15] MEDS ORDERED: Succinylcholine 20mg/ml 10ml vial ONE (04:46)
[2018-08-15] MEDS ORDERED: Methohexital Sodium 500mg Vial IVP ONE (04:46)
[2018-08-15 08:13] VITALS: BP 132/98
[2018-08-15 08:26] VITALS: BP 129/73
[2018-08-15 08:31] VITALS: BP 118/76
[2018-08-15 08:36] VITALS: BP 122/71
[2018-08-15 08:41] VITALS: BP 129/70
[2018-09-01 07:57] VITALS: BP 136/92
[2018-09-01 08:10] VITALS: BP 132/65
[2018-09-01 08:15] VITALS: BP 135/59
[2018-09-01 08:20] VITALS: BP 132/74
[2018-09-01 08:25] VITALS: BP 140/69
[2018-09-01] MEDS ORDERED: Methohexital Sodium Syr 100mg/10ml IVP ONE (09:00)
[2018-09-01] MEDS ORDERED: Midazolam 2mg/2ml Inj ONE (09:00)
[2018-09-01] MEDS ORDERED: Glycopyrrolate 0.2mg/ml 1ml Vial ONE (09:00)
[2018-09-01] MEDS ORDERED: Succinylcholine 20mg/ml 10ml vial ONE (09:00)
== END 2018-09-07 | disposition home or self-care (01) ==
LOC: ECT 04:45
DX: F31.63 Bipolar disorder, current episode mixed, severe, without psychotic features (principal)
CPT/HCPCS: 90870; J0330; J2250; J2405; J3490

== ENCOUNTER 2018-09-19 04:38 | Outpatient (RCR) | payer OTHER ==
[~2018-09-19] VITALS: Ht 30.5 cm; Wt 0.5 kg
[2018-09-19] MEDS ORDERED: Methohexital Sodium Syr 100mg/10ml IVP ONE (08:00)
[2018-09-19] MEDS ORDERED: Glycopyrrolate 0.2mg/ml 1ml Vial ONE (08:00)
[2018-09-19] MEDS ORDERED: Midazolam 2mg/2ml Inj ONE (08:00)
[2018-09-19] MEDS ORDERED: NS 500ML ONE (08:00)
[2018-09-19] MEDS ORDERED: Succinylcholine 20mg/ml 10ml vial ONE (08:00)
[2018-09-19 08:09] VITALS: BP 117/82
[2018-09-19 08:20] VITALS: BP 122/67
[2018-09-19 08:25] VITALS: BP 116/66
[2018-09-19 08:30] VITALS: BP 127/73
[2018-09-19 08:35] VITALS: BP 97/58
[2018-10-06] MEDS ORDERED: Methohexital Sodium Syr 100mg/10ml IVP ONE (06:00)
[2018-10-06] MEDS ORDERED: NS 500ML ONE (06:00)
[2018-10-06] MEDS ORDERED: Succinylcholine 20mg/ml 10ml vial ONE (06:00)
[2018-10-06] MEDS ORDERED: Midazolam 2mg/2ml Inj ONE (06:00)
[2018-10-06] MEDS ORDERED: Glycopyrrolate 0.2mg/ml 1ml Vial ONE (06:00)
[2018-10-06 07:44] VITALS: BP 141/85
[2018-10-06 07:55] VITALS: BP 117/56
[2018-10-06 08:00] VITALS: BP 125/77
[2018-10-06 08:05] VITALS: BP 128/56
[2018-10-06 08:10] VITALS: BP 129/32
== END 2018-10-08 | disposition home or self-care (01) ==
LOC: ECT 04:38
DX: F31.63 Bipolar disorder, current episode mixed, severe, without psychotic features (principal)
CPT/HCPCS: 90870; J0330; J2250; J2405; J7040

== ENCOUNTER 2018-10-22 05:17 | Outpatient (RCR) | payer OTHER ==
[~2018-10-22] VITALS: Ht 167.6 cm; Wt 89.0 kg
[2018-10-31] MEDS ORDERED: Midazolam 2mg/2ml Inj ONE (08:00)
[2018-10-31] MEDS ORDERED: Succinylcholine 20mg/ml 10ml vial ONE (08:00)
[2018-10-31] MEDS ORDERED: Methohexital Sodium Syr 100mg/10ml IVP ONE (08:00)
[2018-10-31] MEDS ORDERED: NS 500ML ONE (08:00)
[2018-10-31] MEDS ORDERED: Glycopyrrolate 0.2mg/ml 1ml Vial ONE (08:00)
[2018-10-31 08:09] VITALS: BP 121/89
[2018-10-31 08:30] VITALS: BP 117/62
[2018-10-31 08:35] VITALS: BP 124/78
[2018-10-31 08:40] VITALS: BP 113/67
[2018-10-31 08:45] VITALS: BP 121/56
== END 2018-11-08 | disposition home or self-care (01) ==
LOC: ECT 05:17
DX: F31.63 Bipolar disorder, current episode mixed, severe, without psychotic features (principal)
CPT/HCPCS: 90870; J0330; J2250; J2405; J7040

== ENCOUNTER 2018-11-14 04:40 | Outpatient (RCR) | payer OTHER ==
[~2018-11-14] VITALS: Ht 167.6 cm; Wt 89.0 kg
[2018-11-17] MEDS ORDERED: NS 500ML ONE (06:00)
[2018-11-17] MEDS ORDERED: Glycopyrrolate 0.2mg/ml 1ml Vial ONE (06:00)
[2018-11-17] MEDS ORDERED: Midazolam 2mg/2ml Inj ONE (06:00)
[2018-11-17] MEDS ORDERED: Succinylcholine 20mg/ml 10ml vial ONE (06:00)
[2018-11-17] MEDS ORDERED: Methohexital Sodium Syr 100mg/10ml IVP ONE (06:00)
[2018-11-17 08:09] VITALS: BP 150/93
[2018-11-17 08:22] VITALS: BP 133/54
[2018-11-17 08:27] VITALS: BP 140/80
[2018-11-17 08:32] VITALS: BP 124/76
[2018-11-17 08:37] VITALS: BP 111/49
[2018-12-03] MEDS ORDERED: Midazolam 2mg/2ml Inj ONE (06:00)
[2018-12-03] MEDS ORDERED: Succinylcholine 20mg/ml 10ml vial ONE (06:00)
[2018-12-03] MEDS ORDERED: NS 500ML ONE (06:00)
[2018-12-03] MEDS ORDERED: Methohexital Sodium Syr 100mg/10ml IVP ONE (06:00)
[2018-12-03] MEDS ORDERED: Glycopyrrolate 0.2mg/ml 1ml Vial ONE (06:00)
[2018-12-03 08:05] VITALS: BP 130/76
[2018-12-03 08:20] VITALS: BP 147/88
[2018-12-03 08:25] VITALS: BP 128/72
[2018-12-03 08:30] VITALS: BP 133/70
[2018-12-03 08:35] VITALS: BP 126/67
== END 2018-12-08 | disposition home or self-care (01) ==
LOC: ECT 04:40
DX: F31.63 Bipolar disorder, current episode mixed, severe, without psychotic features (principal)
CPT/HCPCS: 90870; J0330; J2250; J2405; J7040

== ENCOUNTER 2018-12-19 08:43 | Outpatient (RCR) | payer OTHER ==
[~2018-12-19] VITALS: Ht 30.5 cm; Wt 0.5 kg
[2018-12-19 08:18] VITALS: BP 152/103
[2018-12-19 08:35] VITALS: BP 142/84
[2018-12-19 08:40] VITALS: BP 139/70
[2018-12-19] MEDS ORDERED: Methohexital Sodium Syr 100mg/10ml IVP ONE (08:44)
[2018-12-19] MEDS ORDERED: Midazolam 2mg/2ml Inj ONE ×2 (08:44)
[2018-12-19] MEDS ORDERED: Glycopyrrolate 0.2mg/ml 1ml Vial ONE ×2 (08:44)
[2018-12-19] MEDS ORDERED: NS 500ML ONE (08:44)
[2018-12-19] MEDS ORDERED: Succinylcholine 20mg/ml 10ml vial ONE ×2 (08:44)
[2018-12-19] MEDS ORDERED: Methohexital Sodium 500mg Vial IVP ONE (08:44)
[2018-12-19 08:45] VITALS: BP 146/78
[2018-12-19 08:50] VITALS: BP 145/90
[2019-01-02 07:44] VITALS: BP 124/81
[2019-01-02 07:55] VITALS: BP 125/57
[2019-01-02 08:00] VITALS: BP 128/69
[2019-01-02 08:05] VITALS: BP 131/65
[2019-01-02 08:10] VITALS: BP 123/67
== END 2019-01-08 | disposition home or self-care (01) ==
LOC: ECT 08:43
DX: F31.63 Bipolar disorder, current episode mixed, severe, without psychotic features (principal)
CPT/HCPCS: 90870; J0330; J2250; J2405; J3490; J7040

== ENCOUNTER 2019-01-19 07:30 | Outpatient (RCR) | payer OTHER ==
[~2019-01-19] VITALS: Ht 30.5 cm; Wt 0.5 kg
[2019-01-19] MEDS ORDERED: Succinylcholine 20mg/ml 10ml vial ONE (07:31)
[2019-01-19] MEDS ORDERED: NS 500ML ONE (07:31)
[2019-01-19] MEDS ORDERED: Methohexital Sodium Syr 100mg/10ml IVP ONE (07:31)
[2019-01-19] MEDS ORDERED: Midazolam 2mg/2ml Inj ONE (07:31)
[2019-01-19] MEDS ORDERED: Glycopyrrolate 0.2mg/ml 1ml Vial ONE (07:31)
[2019-01-19 07:51] VITALS: BP 128/91
[2019-01-19 08:03] VITALS: BP 147/60
[2019-01-19 08:08] VITALS: BP 131/73
[2019-01-19 08:13] VITALS: BP 122/82
[2019-01-19 08:18] VITALS: BP 102/53
== END 2019-02-07 | disposition home or self-care (01) ==
LOC: ECT 07:30
DX: F31.63 Bipolar disorder, current episode mixed, severe, without psychotic features (principal)
CPT/HCPCS: 90870; J0330; J2250; J2405; J7040

== ENCOUNTER 2019-02-09 05:50 | Outpatient (RCR) | payer OTHER ==
[~2019-02-09] VITALS: Ht 167.6 cm; Wt 40.4 kg
[2019-02-09] MEDS ORDERED: NS 500ML ONE ×2 (05:51)
[2019-02-09] MEDS ORDERED: Methohexital Sodium Syr 100mg/10ml IVP ONE (05:51)
[2019-02-09] MEDS ORDERED: Methohexital Sodium 500mg Vial IVP ONE (05:51)
[2019-02-09] MEDS ORDERED: Glycopyrrolate 0.2mg/ml 1ml Vial ONE ×2 (05:51)
[2019-02-09] MEDS ORDERED: Succinylcholine 20mg/ml 10ml vial ONE (05:51)
[2019-02-09] MEDS ORDERED: Midazolam 2mg/2ml Inj ONE ×2 (05:51)
[2019-02-09 08:04] VITALS: BP 144/95
[2019-02-09 08:18] VITALS: BP 148/74
[2019-02-09 08:23] VITALS: BP 139/51
[2019-02-09 08:28] VITALS: BP 136/76
[2019-02-09 08:33] VITALS: BP 139/85
[2019-03-02 07:45] VITALS: BP 121/91
[2019-03-02 08:00] VITALS: BP 122/72
[2019-03-02 08:05] VITALS: BP 128/75
[2019-03-02 08:10] VITALS: BP 115/53
[2019-03-02 08:15] VITALS: BP 111/53
== END 2019-03-10 | disposition home or self-care (01) ==
LOC: ECT 05:50
DX: F31.63 Bipolar disorder, current episode mixed, severe, without psychotic features (principal)
CPT/HCPCS: 90870; J2250; J2405; J3490

== ENCOUNTER 2019-04-15 05:14 | Outpatient (RCR) | payer OTHER ==
[~2019-04-15] VITALS: Ht 167.6 cm; Wt 89.0 kg
[2019-04-15] MEDS ORDERED: Midazolam 2mg/2ml Inj ONE (05:15)
[2019-04-15] MEDS ORDERED: Succinylcholine 20mg/ml 10ml vial ONE ×2 (05:15)
[2019-04-15] MEDS ORDERED: Glycopyrrolate 0.2mg/ml 1ml Vial ONE ×2 (05:15)
[2019-04-15] MEDS ORDERED: NS 500ML ONE ×2 (05:15)
[2019-04-15] MEDS ORDERED: Methohexital Sodium Syr 100mg/10ml IVP ONE ×2 (05:15)
[2019-04-15 08:11] VITALS: BP 138/94
[2019-04-15 08:25] VITALS: BP 142/72
[2019-04-15 08:30] VITALS: BP 118/67
[2019-04-15 08:35] VITALS: BP 122/78
[2019-04-15 08:40] VITALS: BP 127/63
[2019-04-27 07:50] VITALS: BP 128/88
[2019-04-27 08:02] VITALS: BP 148/88
[2019-04-27 08:07] VITALS: BP 120/66
[2019-04-27 08:12] VITALS: BP 121/71
[2019-04-27 08:17] VITALS: BP 123/80
[2019-05-08 08:19] VITALS: BP 125/88
[2019-05-08 08:35] VITALS: BP 133/69
[2019-05-08 08:40] VITALS: BP 129/76
[2019-05-08 08:45] VITALS: BP 126/68
[2019-05-08 08:50] VITALS: BP 133/76
[2019-05-09] MEDS ORDERED: Midazolam 2mg/2ml Inj ONE (21:54)
[2019-05-09] MEDS ORDERED: Glycopyrrolate 0.2mg/ml 1ml Vial ONE (21:54)
[2019-05-09] MEDS ORDERED: Succinylcholine 20mg/ml 10ml vial ONE (21:54)
[2019-05-09] MEDS ORDERED: NS 500ML ONE (21:54)
[2019-05-09] MEDS ORDERED: Methohexital Sodium Syr 100mg/10ml IVP ONE (21:54)
== END 2019-05-09 | disposition home or self-care (01) ==
LOC: ECT 05:14
DX: F31.63 Bipolar disorder, current episode mixed, severe, without psychotic features (principal)
CPT/HCPCS: 90870; J0330; J2250; J2405; J7040

== ENCOUNTER 2019-05-22 07:04 | Outpatient (RCR) | payer OTHER ==
[~2019-05-22] VITALS: Ht 167.6 cm; Wt 89.0 kg
[2019-05-27] MEDS ORDERED: NS 500ML ONE (06:00)
[2019-05-27] MEDS ORDERED: Succinylcholine 20mg/ml 10ml vial ONE (06:00)
[2019-05-27] MEDS ORDERED: Methohexital Sodium Syr 100mg/10ml IVP ONE (06:00)
[2019-05-27] MEDS ORDERED: Midazolam 2mg/2ml Inj ONE (06:00)
[2019-05-27] MEDS ORDERED: Glycopyrrolate 0.2mg/ml 1ml Vial ONE (06:00)
[2019-05-27 10:21] VITALS: BP 142/91
[2019-05-27 10:35] VITALS: BP 132/78
[2019-05-27 10:40] VITALS: BP 136/77
[2019-05-27 10:45] VITALS: BP 137/76
[2019-05-27 10:50] VITALS: BP 141/81
== END 2019-06-09 | disposition home or self-care (01) ==
LOC: ECT 07:04
DX: F31.63 Bipolar disorder, current episode mixed, severe, without psychotic features (principal)
CPT/HCPCS: 90870; J0330; J2250; J2405; J7040

== ENCOUNTER 2019-06-12 05:46 | Outpatient (RCR) | payer OTHER ==
[~2019-06-12] VITALS: Ht 167.6 cm; Wt 89.0 kg
[2019-06-12] MEDS ORDERED: Glycopyrrolate 0.2mg/ml 1ml Vial ONE (05:47)
[2019-06-12] MEDS ORDERED: Midazolam 2mg/2ml Inj ONE (05:47)
[2019-06-12] MEDS ORDERED: Methohexital Sodium Syr 100mg/10ml IVP ONE (05:47)
[2019-06-12] MEDS ORDERED: NS 500ML ONE (05:47)
[2019-06-12] MEDS ORDERED: Succinylcholine 20mg/ml 10ml vial ONE (05:47)
[2019-06-12 08:36] VITALS: BP 140/92
[2019-06-12 08:50] VITALS: BP 119/78
[2019-06-12 08:55] VITALS: BP 124/70
[2019-06-12 09:00] VITALS: BP 117/96
[2019-06-12 09:05] VITALS: BP 113/74
[2019-06-29] MEDS ORDERED: Midazolam 2mg/2ml Inj ONE (08:00)
[2019-06-29] MEDS ORDERED: Methohexital Sodium Syr 100mg/10ml IVP ONE (08:00)
[2019-06-29] MEDS ORDERED: Succinylcholine 20mg/ml 10ml vial ONE (08:00)
[2019-06-29] MEDS ORDERED: NS 500ML ONE (08:00)
[2019-06-29] MEDS ORDERED: Glycopyrrolate 0.2mg/ml 1ml Vial ONE (08:00)
[2019-06-29 09:00] VITALS: BP 151/88
[2019-06-29 09:19] VITALS: BP 147/70
[2019-06-29 09:24] VITALS: BP 152/56
[2019-06-29 09:29] VITALS: BP 146/90
[2019-06-29 09:34] VITALS: BP 143/65
== END 2019-07-09 | disposition home or self-care (01) ==
LOC: ECT 05:46
DX: F31.63 Bipolar disorder, current episode mixed, severe, without psychotic features (principal)
CPT/HCPCS: 90870; J0330; J2250; J2405; J7040

== ENCOUNTER 2019-07-17 06:19 | Outpatient (RCR) | payer OTHER ==
[~2019-07-17] VITALS: Ht 167.6 cm; Wt 89.0 kg
[2019-07-17] MEDS ORDERED: Methohexital Sodium Syr 100mg/10ml IVP ONE (06:20)
[2019-07-17] MEDS ORDERED: Glycopyrrolate 0.2mg/ml 1ml Vial ONE (06:20)
[2019-07-17] MEDS ORDERED: Midazolam 2mg/2ml Inj ONE (06:20)
[2019-07-17 08:44] VITALS: BP 137/93
[2019-07-17 09:00] VITALS: BP 124/70
[2019-07-17 09:05] VITALS: BP 121/66
[2019-07-17 09:10] VITALS: BP 126/63
[2019-07-17 09:15] VITALS: BP 128/76
[2019-08-07 08:37] VITALS: BP 136/83
[2019-08-07 08:49] VITALS: BP 145/73
[2019-08-07 08:54] VITALS: BP 121/62
[2019-08-07 08:59] VITALS: BP 116/62
[2019-08-07] MEDS ORDERED: Methohexital Sodium Syr 100mg/10ml IVP ONE (09:00)
[2019-08-07] MEDS ORDERED: Midazolam 2mg/2ml Inj ONE (09:00)
[2019-08-07] MEDS ORDERED: Succinylcholine 20mg/ml 10ml vial ONE (09:00)
[2019-08-07] MEDS ORDERED: NS 500ML ONE (09:00)
[2019-08-07] MEDS ORDERED: Glycopyrrolate 0.2mg/ml 1ml Vial ONE (09:00)
[2019-08-07 09:04] VITALS: BP 114/69
== END 2019-08-09 | disposition home or self-care (01) ==
LOC: ECT 06:19
DX: F31.63 Bipolar disorder, current episode mixed, severe, without psychotic features (principal)
CPT/HCPCS: 90870; J0330; J2250; J2405; J7040

== ENCOUNTER 2019-08-28 05:24 | Outpatient (RCR) | payer OTHER ==
[~2019-08-28] VITALS: Ht 30.5 cm; Wt 0.5 kg
[2019-09-07 08:18] VITALS: BP 142/87
[2019-09-07] MEDS ORDERED: Lidocaine 2% 100mg/5ml Carp IV PRN (08:39)
[2019-09-07] MEDS ORDERED: Atropine Sulfate 0.4mg/ml inj IVP PRN (08:39)
[2019-09-07 08:40] VITALS: BP 150/75
[2019-09-07 08:45] VITALS: BP 155/80
[2019-09-07 08:50] VITALS: BP 156/70
[2019-09-07 08:55] VITALS: BP 151/81
[2019-09-07] MEDS ORDERED: Midazolam 2mg/2ml Inj ONE (09:00)
[2019-09-07] MEDS ORDERED: Glycopyrrolate 0.2mg/ml 1ml Vial ONE (09:00)
[2019-09-07] MEDS ORDERED: NS 500ML ONE (09:00)
[2019-09-07] MEDS ORDERED: Succinylcholine 20mg/ml 10ml vial ONE (09:00)
[2019-09-07] MEDS ORDERED: Methohexital Sodium Syr 100mg/10ml IVP ONE (09:00)
== END 2019-09-08 | disposition home or self-care (01) ==
LOC: ECT 05:24
DX: F31.63 Bipolar disorder, current episode mixed, severe, without psychotic features (principal)
CPT/HCPCS: 90870; J0330; J2250; J2405; J7040

== ENCOUNTER 2019-09-21 05:35 | Outpatient (RCR) | payer OTHER ==
[~2019-09-21] VITALS: Ht 167.6 cm; Wt 97.5 kg
[2019-09-21] MEDS ORDERED: Glycopyrrolate 0.2mg/ml 1ml Vial ONE (05:36)
[2019-09-21] MEDS ORDERED: Midazolam 2mg/2ml Inj ONE (05:36)
[2019-09-21] MEDS ORDERED: Succinylcholine 20mg/ml 10ml vial ONE (05:36)
[2019-09-21] MEDS ORDERED: NS 500ML ONE (05:36)
[2019-09-21] MEDS ORDERED: Methohexital Sodium Syr 100mg/10ml IVP ONE (05:36)
[2019-09-21 11:38] VITALS: BP 125/88
[2019-09-21] MEDS ORDERED: Lidocaine 2% 100mg/5ml Carp IV PRN (12:05)
[2019-09-21] MEDS ORDERED: Atropine Sulfate 0.4mg/ml inj IVP PRN (12:05)
[2019-09-21 12:06] VITALS: BP 127/68
[2019-09-21 12:11] VITALS: BP 132/57
[2019-09-21 12:16] VITALS: BP 139/66
[2019-09-21 12:21] VITALS: BP 138/77
[2019-09-28] MEDS ORDERED: Succinylcholine 20mg/ml 10ml vial ONE (06:00)
[2019-09-28] MEDS ORDERED: NS 500ML ONE (06:00)
[2019-09-28] MEDS ORDERED: Midazolam 2mg/2ml Inj ONE (06:00)
[2019-09-28] MEDS ORDERED: Methohexital Sodium Syr 100mg/10ml IVP ONE (06:00)
[2019-09-28] MEDS ORDERED: Glycopyrrolate 0.2mg/ml 1ml Vial ONE (06:00)
[2019-09-28 09:25] VITALS: BP 131/86
[2019-09-28 09:36] VITALS: BP 128/80
[2019-09-28 09:41] VITALS: BP 128/67
[2019-09-28 09:46] VITALS: BP 114/65
[2019-09-28 09:51] VITALS: BP 107/67
[2019-10-05] VITALS (7 sets, daily range): BP systolic 114–148; BP diastolic 57–89
[2019-10-05] MEDS ORDERED: Glycopyrrolate 0.2mg/ml 1ml Vial ONE (07:00)
[2019-10-05] MEDS ORDERED: Midazolam 2mg/2ml Inj ONE (07:00)
[2019-10-05] MEDS ORDERED: NS 500ML ONE (07:00)
[2019-10-05] MEDS ORDERED: Methohexital Sodium Syr 100mg/10ml IVP ONE (07:00)
[2019-10-05] MEDS ORDERED: Succinylcholine 20mg/ml 10ml vial ONE (07:00)
[2019-10-05] MEDS ORDERED: Atropine Sulfate 0.4mg/ml inj IVP PRN (08:34)
[2019-10-05] MEDS ORDERED: Lidocaine 2% 100mg/5ml Carp IV PRN (08:34)
== END 2019-10-09 | disposition home or self-care (01) ==
LOC: ECT 05:35
DX: F31.63 Bipolar disorder, current episode mixed, severe, without psychotic features (principal)
CPT/HCPCS: 90870; J0330; J2250; J2405; J7040

== ENCOUNTER 2019-10-19 04:47 | Outpatient (RCR) | payer OTHER ==
[~2019-10-19] VITALS: Ht 167.6 cm; Wt 97.8 kg
[2019-10-21] VITALS (7 sets, daily range): BP systolic 123–158; BP diastolic 69–94
[2019-10-21] MEDS ORDERED: Midazolam 2mg/2ml Inj ONE (09:00)
[2019-10-21] MEDS ORDERED: Methohexital Sodium Syr 100mg/10ml IVP ONE (09:00)
[2019-10-21] MEDS ORDERED: Glycopyrrolate 0.2mg/ml 1ml Vial ONE (09:00)
[2019-10-21] MEDS ORDERED: NS 500ML ONE (09:00)
[2019-10-21] MEDS ORDERED: Succinylcholine 20mg/ml 10ml vial ONE (09:00)
[2019-10-21] MEDS ORDERED: Atropine Sulfate 0.4mg/ml inj IVP PRN (10:09)
[2019-11-04] VITALS (7 sets, daily range): BP systolic 122–136; BP diastolic 57–94
[2019-11-04] MEDS ORDERED: Succinylcholine 20mg/ml 10ml vial ONE (07:00)
[2019-11-04] MEDS ORDERED: Midazolam 2mg/2ml Inj ONE (07:00)
[2019-11-04] MEDS ORDERED: Methohexital Sodium Syr 100mg/10ml IVP ONE (07:00)
[2019-11-04] MEDS ORDERED: Glycopyrrolate 0.2mg/ml 1ml Vial ONE (07:00)
[2019-11-04] MEDS ORDERED: NS 500ML ONE (07:00)
[2019-11-04] MEDS ORDERED: Atropine Sulfate 0.4mg/ml inj IVP PRN (09:54)
== END 2019-11-09 | disposition home or self-care (01) ==
LOC: ECT 04:47
DX: F31.63 Bipolar disorder, current episode mixed, severe, without psychotic features (principal)
CPT/HCPCS: 90870; J0330; J2250; J2405; J7040

== ENCOUNTER 2019-11-20 11:59 | Outpatient (RCR) | payer OTHER ==
[~2019-11-20] VITALS: Ht 30.5 cm; Wt 0.5 kg
[2019-11-20 09:45] VITALS: BP 147/66
[2019-11-20 09:50] VITALS: BP 136/65
[2019-11-20 09:55] VITALS: BP 135/68
[2019-11-20 10:00] VITALS: BP 129/87
[2019-11-20 10:05] VITALS: BP 137/75
[2019-11-20 10:10] VITALS: BP 135/88
[2019-11-20] MEDS ORDERED: Glycopyrrolate 0.2mg/ml 1ml Vial ONE (12:00)
[2019-11-20] MEDS ORDERED: NS 500ML ONE (12:00)
[2019-11-20] MEDS ORDERED: Methohexita Syr 100mg/10ml IVP ONE (12:00)
[2019-11-20] MEDS ORDERED: Midazolam 2mg/2ml Inj ONE (12:00)
[2019-11-20] MEDS ORDERED: Succinylcholine 20mg/ml 10ml vial ONE (12:00)
== END 2019-12-09 | disposition home or self-care (01) ==
LOC: ECT 11:59
DX: F31.63 Bipolar disorder, current episode mixed, severe, without psychotic features (principal)
CPT/HCPCS: 90870; J0330; J2250; J2405; J7040

== ENCOUNTER 2019-12-11 05:13 | Outpatient (RCR) | payer OTHER ==
[~2019-12-11] VITALS: Ht 30.5 cm; Wt 0.5 kg
[2019-12-11] VITALS (7 sets, daily range): BP systolic 123–151; BP diastolic 67–96
[2019-12-11] MEDS ORDERED: Midazolam 2mg/2ml Inj ONE (05:14)
[2019-12-11] MEDS ORDERED: NS 500ML ONE (05:14)
[2019-12-11] MEDS ORDERED: Glycopyrrolate 0.2mg/ml 1ml Vial ONE (05:14)
[2019-12-11] MEDS ORDERED: Methohexital Sodium Syr 100mg/10ml IVP ONE (05:14)
[2019-12-11] MEDS ORDERED: Succinylcholine 20mg/ml 10ml vial ONE (05:14)
[2020-01-01] VITALS (7 sets, daily range): BP systolic 126–138; BP diastolic 71–91
[2020-01-01] MEDS ORDERED: Glycopyrrolate 0.2mg/ml 1ml Vial ONE (06:00)
[2020-01-01] MEDS ORDERED: Succinylcholine 20mg/ml 10ml vial ONE (06:00)
[2020-01-01] MEDS ORDERED: Methohexital Sodium Syr 100mg/10ml IVP ONE (06:00)
[2020-01-01] MEDS ORDERED: Midazolam 2mg/2ml Inj ONE (06:00)
[2020-01-01] MEDS ORDERED: NS 500ML ONE (06:00)
== END 2020-01-09 | disposition home or self-care (01) ==
LOC: ECT 05:13
DX: F31.63 Bipolar disorder, current episode mixed, severe, without psychotic features (principal)
CPT/HCPCS: 90870; J0330; J2250; J2405; J7040

== ENCOUNTER 2020-01-25 04:47 | Outpatient (RCR) | payer OTHER ==
[2020-01-25] VITALS (7 sets, daily range): BP systolic 121–141; BP diastolic 65–86
[~2020-01-25] VITALS: Ht 167.6 cm; Wt 97.5 kg
[2020-01-25] MEDS ORDERED: Succinylcholine 20mg/ml 10ml vial ONE (06:00)
[2020-01-25] MEDS ORDERED: Glycopyrrolate 0.2mg/ml 1ml Vial ONE (06:00)
[2020-01-25] MEDS ORDERED: NS 500ML ONE (06:00)
[2020-01-25] MEDS ORDERED: Methohexita Syr 100mg/10ml IVP ONE (06:00)
[2020-01-25] MEDS ORDERED: Midazolam 2mg/2ml Inj ONE (06:00)
== END 2020-02-08 | disposition home or self-care (01) ==
LOC: ECT 04:47
DX: F31.63 Bipolar disorder, current episode mixed, severe, without psychotic features (principal)
CPT/HCPCS: 90870; J0330; J2250; J2405; J7040

== ENCOUNTER 2020-02-12 04:39 | Outpatient (RCR) | payer OTHER ==
[~2020-02-12] VITALS: Ht 167.6 cm; Wt 97.5 kg
[2020-02-12] MEDS ORDERED: Succinylcholine 20mg/ml 10ml vial ONE (04:40)
[2020-02-12] MEDS ORDERED: Methohexita Syr 100mg/10ml IVP ONE (04:40)
[2020-02-12] MEDS ORDERED: Midazolam 2mg/2ml Inj ONE (04:40)
[2020-02-12] MEDS ORDERED: NS 500ML ONE (04:40)
[2020-02-12] MEDS ORDERED: Glycopyrrolate 0.2mg/ml 1ml Vial ONE (04:40)
[2020-02-12 08:31] VITALS: BP 129/87
[2020-02-12 08:43] VITALS: BP 131/63
[2020-02-12 08:48] VITALS: BP 126/76
[2020-02-12 08:53] VITALS: BP 135/90
[2020-02-12 08:58] VITALS: BP 114/71
[2020-02-12 09:03] VITALS: BP 121/62
[2020-03-07] VITALS (7 sets, daily range): BP systolic 103–142; BP diastolic 51–95
[2020-03-07] MEDS ORDERED: Midazolam 2mg/2ml Inj ONE (09:00)
[2020-03-07] MEDS ORDERED: Methohexita Syr 100mg/10ml IVP ONE (09:00)
[2020-03-07] MEDS ORDERED: NS 500ML ONE (09:00)
[2020-03-07] MEDS ORDERED: Succinylcholine 20mg/ml 10ml vial ONE (09:00)
[2020-03-07] MEDS ORDERED: Glycopyrrolate 0.2mg/ml 1ml Vial ONE (09:00)
== END 2020-03-10 | disposition home or self-care (01) ==
LOC: ECT 04:39
DX: F31.63 Bipolar disorder, current episode mixed, severe, without psychotic features (principal)
CPT/HCPCS: 90870; J0330; J2250; J2405; J7040

== ENCOUNTER 2020-03-25 05:54 | Outpatient (RCR) | payer OTHER ==
[~2020-03-25] VITALS: Ht 30.5 cm; Wt 0.5 kg
[2020-03-25] VITALS (7 sets, daily range): BP systolic 97–118; BP diastolic 44–82
[2020-03-25] MEDS ORDERED: Succinylcholine 20mg/ml 10ml vial ONE (05:55)
[2020-03-25] MEDS ORDERED: Glycopyrrolate 0.2mg/ml 1ml Vial ONE (05:55)
[2020-03-25] MEDS ORDERED: Methohexita Syr 100mg/10ml IVP ONE (05:55)
[2020-03-25] MEDS ORDERED: NS 500ML ONE (05:55)
[2020-03-25] MEDS ORDERED: Midazolam 2mg/2ml Inj ONE (05:55)
== END 2020-04-10 | disposition home or self-care (01) ==
LOC: ECT 05:54
DX: F31.63 Bipolar disorder, current episode mixed, severe, without psychotic features (principal)
CPT/HCPCS: 90870; J0330; J2250; J2405; J7040